=== PATIENT | male | born 1990 | race African-American/Black ===

== ENCOUNTER 2020-11-30 18:25 | Emergency (ER) | payer SELFPAY ==
[~2020-11-30] VITALS: Ht 175.3 cm; Wt 89.4 kg
[2020-11-30] MEDS ORDERED: PENICILLIN G BENZATHINE LA 1.2 MU TBX IM STA (19:17)
[2020-11-30] MEDS ORDERED: IBUPROFEN 600 MG TAB PO STA (19:17)
== END 2020-11-30 21:37 | disposition home or self-care (01) ==
LOC: FSED 18:36
DX: R50.9 Fever, unspecified (principal); J02.0 Streptococcal pharyngitis; F17.210 Nicotine dependence, cigarettes, uncomplicated
CPT/HCPCS: 99283; J0561